=== PATIENT | female | born 1980 | race Hispanic/Latino ===

== ENCOUNTER 2017-07-20 18:42 | Emergency (ER) | payer OTHER, SELFPAY ==
[2017-07-20 19:28] LABS: Pregnancy Test - Urine (BHCG) Negative (Negative); Pregu Control Background? CLEAR/WHITE (CLR/WHITE); Pregu Control Bar Appear? YES (CONTROL BAR); Specific Gravity 1.024 (1.002-1.036)
[2017-07-20 19:30] LABS: Bilirubin Negative (Negative); Blood, Urine Moderate (Negative); Clarity CLOUDY (Clear); Glucose, Urine (Dipstick) Negative (Negative); Leukocyte Small (Negative); Nitrite Negative (Negative); Protein, Urine (Dipstick) Negative (Neg-Trace); Specific Gravity, Urine 1.024 (1.002-1.036); Urobilinogen 0.2 mg/dL (0.2-1.0); pH, Urine 5.5 (5.0-9.0)
[2017-07-20] MEDS ORDERED: Ketorolac Tromethamine 30 MG/ML VIAL ONE (19:32)
[2017-07-20] MEDS ORDERED: Morphine 4 MG/ML VIAL ONE (19:32)
[2017-07-20 19:34] LABS: Bacteria/HPF 2+ HPF (None Seen); Hyaline Casts/LPF 0-3 HYALINE CAST LPF (0-3 Hyaline); Pathc Cast-AUWi Flag 0.27 (0-2.49)
[2017-07-20 19:41] LABS: Yeast-AUWi Flag 108.9 (0-25.0)
[2017-07-20 19:49] LABS: Yeast-All Forms None Seen HPF (None Seen)
[2017-07-20] MEDS ORDERED: Nitrofurantoin Macrocrystal 50 MG CAP PO SCH (20:15)
== END 2017-07-20 20:21 | disposition home or self-care (01) ==
LOC: ERS 18:42
DX: M62.830 Muscle spasm of back (principal); N39.0 Urinary tract infection, site not specified
CPT/HCPCS: 81003; 81015; 81025; 87086; 96372; J1885; J2270

== ENCOUNTER 2017-11-05 15:47 | Emergency (ER) | payer SELFPAY ==
[2017-11-05 16:08] LABS: Bilirubin Negative (Negative); Blood, Urine Trace (Negative); Clarity Slightly Cloudy (Clear); Glucose, Urine (Dipstick) Negative (Negative); Leukocyte Trace (Negative); Nitrite Negative (Negative); Protein, Urine (Dipstick) Trace mg/dL (Neg-Trace); Urobilinogen 0.2 mg/dL (0.2-1.0)
[2017-11-05 16:09] LABS: Bacteria/HPF 2+ HPF (None Seen)
== END 2017-11-05 16:27 | disposition home or self-care (01) ==
LOC: SCSER 15:47
DX: O09.511 Supervision of elderly primigravida, first trimester (principal); O23.41 Unspecified infection of urinary tract in pregnancy, first trimester; Z79.899 Other long term (current) drug therapy; Z3A.08 8 weeks gestation of pregnancy
CPT/HCPCS: 81003; 81015; 87077; 87086; 87186; 99283

== ENCOUNTER 2017-11-16 11:54 | Emergency (ER) | payer MEDICAID, SELFPAY ==
[2017-11-16 12:27] LABS: #Basophils 0.1 thou/uL (0.0-0.2); #Eosinphils 0.2 thou/uL (0.0-0.7); #Lymphocytes 1.6 thou/uL (1.20-3.40); #Monocytes 0.5 thou/uL (0.11-0.59); #Neutrophils 3.7 thou/uL (1.40-6.50); %Basophils 1.7 % (0.0-1.0); %Lymphocytes 26.4 % (21.0-51.0); %Monocytes 7.5 % (0.0-10.0); %Neutrophils 61.4 % (42.0-75.0); Hemoglobin 13.3 g/dL (12.0-16.0); Mean Corpuscular HGB CONC 32.9 g/dL (32.0-36.0); Mean Corpuscular Hemoglobin 30.5 pg (27.0-31.0); Mean Corpuscular Volume 92.7 fL (78.0-98.0); Mean Platelet Volume 8.6 fL (7.4-10.4); Platelet Count 219 thou/uL (130-400); RBC Distribution Width 12.2 % (11.5-14.5); Red Blood Cell (RBC) Count 4.34 mill/uL (4.20-5.40)
[2017-11-16 12:42] LABS: Bilirubin Negative (Negative); Blood, Urine Negative (Negative); Clarity CLEAR (Clear); Glucose, Urine (Dipstick) Negative (Negative); Leukocyte Negative (Negative); Nitrite Negative (Negative); Protein, Urine (Dipstick) Negative (Neg-Trace); Specific Gravity, Urine 1.008 (1.002-1.036); Urobilinogen 0.2 mg/dL (0.2-1.0); pH, Urine 6.5 (5.0-9.0)
[2017-11-16 13:15] LABS: ALT (SGPT) 33 U/L (8-55); AST (SGOT) 23 U/L (5-34); Alkaline Phosphatase 60 U/L (40-150); Anion Gap 12 mmol/L (10-20); BUN (Urea Nitrogen) 10 mg/dL (7.0-18.7); Bilirubin, Total 0.5 mg/dL (0.2-1.2); Calc. Creatinine Clearance 0 mL/min (70-130); Carbon Dioxide 23 mmol/L (22-29); Chloride 105 mmol/L (98-107); Estimated GFR-MDRD Greater than 90; Glucose 120 mg/dL (70-105); Potassium 3.9 mmol/L (3.5-5.1); Sodium 136 mmol/L (136-145)
--- NOTE | 2017-11-16 13:55 | ULT ---
TRANSABDOMINAL AND TRANSVAGINAL PELVIC ULTRASOUND WITH DOPPLER: Date: 11/16/17 PROVIDED CLINICAL HISTORY: Vaginal bleeding. FINDINGS: Uterus measures about 8.1 x 5.4 x 5.8 cm and demonstrates a circumscribed endometrial fluid collectio n. There is no evidence for a yolk sac or pole. The right and left ovaries appear sonographically normal. Color Doppler and spectral analysis of the ovarian waveforms reveal flow bilaterally. There is no evidence for adnexal mass. Somewhat prominent appearance to the uterine fundus may reflect fibroid. No evidence for free pelvic fluid. IMPRESSION: Circumscribed endometrial fluid collection may represent pseudogestational sac or failed . C orrelation with serial follow-up beta HCG values recommended. POS: [facility]
[2017-11-17 22:42] LABS: Chlamydia by PCR Not Detected (NotDetected); GC by PCR Not Detected (NotDetected)
== END 2017-11-16 16:50 | disposition home or self-care (01) ==
LOC: ERS 11:54
DX: O03.9 Complete or unspecified spontaneous abortion without complication (principal)
CPT/HCPCS: 36415; 76856; 80053; 81003; 84702; 85025; 86900; 86901; 87480; 87491; 87510; 87591; 87660

== ENCOUNTER 2017-11-19 15:55 | Emergency (ER) | payer MEDICAID ==
[2017-11-19 16:36] LABS: #Basophils 0.1 thou/uL (0.0-0.2); #Eosinphils 0.2 thou/uL (0.0-0.7); #Lymphocytes 2.3 thou/uL (1.20-3.40); #Monocytes 0.4 thou/uL (0.11-0.59); #Neutrophils 4.5 thou/uL (1.40-6.50); %Basophils 1.1 % (0.0-1.0); %Eosinophils 2.7 % (0.0-10.0); %Lymphocytes 30.8 % (21.0-51.0); %Monocytes 5.3 % (0.0-10.0); %Neutrophils 60.1 % (42.0-75.0); Hemoglobin 12.6 g/dL (12.0-16.0); Mean Corpuscular HGB CONC 33.6 g/dL (32.0-36.0); Mean Corpuscular Hemoglobin 29.4 pg (27.0-31.0); Mean Corpuscular Volume 87.5 fL (78.0-98.0); Mean Platelet Volume 10.2 fL (7.4-10.4); Platelet Count 228 thou/uL (130-400); RBC Distribution Width 11.7 % (11.5-14.5); White Blood Cell (WBC) Count 7.4 thou/uL (4.8-10.8)
--- NOTE | 2017-11-19 17:45 | ULT ---
PELVIC ULTRASOUND: 11/19/17 COMPARISON: 11/16/17. HISTORY: Recently threatened miscarriage in a female. TECHNIQUE: Multiplanar hadley scale and color doppler images were obtained in a transabdominal and transvaginal pe lvic ultrasound. Spectral analysis of the doppler waveforms were performed. FINDINGS: There is a structure in the endometrium which appears to represent an empty gestational sac. No pole or yolk sac is seen within this likely gestational sac. Mean sac diameter is 1.22 cm which woul d estimate gestational age at 6 weeks, 1 day. This has not changed significantly since the previous e xamination. No free fluid is seen in the pelvis. Both ovaries are normal in size and appearance and demonstrate n ormal internal flow. IMPRESSION: There is the appearance of a gestational sac within the uterus which is empty. No change has occurred compared to the prior exam. This may represent a blighted ovum. Please correlate with HCG laboratory values and whether they are upward or downward trending. POS: [facility]
== END 2017-11-19 18:39 | disposition home or self-care (01) ==
LOC: SCSER 15:55
DX: O36.4XX0 Maternal care for intrauterine death, not applicable or unspecified (principal); O02.0 Blighted ovum and nonhydatidiform mole
CPT/HCPCS: 36415; 76856; 84702; 85025

== ENCOUNTER 2017-11-26 13:57 | Outpatient (CLI) | payer OTHER ==
--- NOTE | 2017-11-26 15:24 | ULT ---
PELVIC ULTRASOUND INCLUDING TRANSABDOMINAL AND TRANSVAGINAL AND VASCULAR DUPELX WITH COLOR AND SPECTR AL DOPPLER IMAGING: HISTORY: A 37-year-old female with a history of missed AB. COMPARISON: 11/19/17. FINDINGS: The uterus measures 9.5 x 5.5 x 6.9 cm and is markedly retroverted and retroflexed. Endometrium kris ures 0.5 cm. Right ovary 1.5 x 1.9 x 2.8 cm. Left ovary 1.9 x 1.9 x 3.0 cm. There is vascular flow documented to both ovaries. There is minimal free fluid in the cul-de-sac. T he previously noted gestational sac is no longer evident within the uterus, evidence for a complete A B. IMPRESSION: Previously noted gestational sac seen on the prior study is no longer evident. Evidence for a comple te . Markedly retroverted or retroflexed uterus. Unremarkable adnexa. Minimal cul-de-sac f luid. No evidence for an ectopic . Correlate with serum HCGs. POS: [facility]
== END 2017-11-26 13:58 | disposition home or self-care (01) ==
LOC: ULT 13:57
PROVIDERS: ATTEND Family Medicine
DX: O02.1 Missed abortion (principal)
CPT/HCPCS: 36415; 76856; 84702

== ENCOUNTER 2018-02-28 15:09 | Emergency (ER) | payer OTHER, SELFPAY ==
[2018-02-28 15:49] LABS: #Basophils 0.1 thou/uL (0.0-0.2); #Eosinphils 0.1 thou/uL (0.0-0.7); #Lymphocytes 2.2 thou/uL (1.20-3.40); #Monocytes 0.6 thou/uL (0.11-0.59); #Neutrophils 5.4 thou/uL (1.40-6.50); %Basophils 0.6 % (0.0-1.0); %Eosinophils 1.4 % (0.0-10.0); %Lymphocytes 25.9 % (21.0-51.0); %Monocytes 7.4 % (0.0-10.0); %Neutrophils 64.7 % (42.0-75.0); Hemoglobin 13.1 g/dL (12.0-16.0); Mean Corpuscular HGB CONC 32.9 g/dL (32.0-36.0); Mean Corpuscular Hemoglobin 30.4 pg (27.0-31.0); Mean Corpuscular Volume 92.3 fL (78.0-98.0); Mean Platelet Volume 8.6 fL (7.4-10.4); Platelet Count 239 thou/uL (130-400); RBC Distribution Width 12.5 % (11.5-14.5); Red Blood Cell (RBC) Count 4.32 mill/uL (4.20-5.40); White Blood Cell (WBC) Count 8.3 thou/uL (4.8-10.8)
[2018-02-28 15:58] LABS: BHCG - Serum POSITIVE (NEGATIVE); Pregs Control Background? CLEAR/WHITE (CLR/WHITE); Pregs Control Bar Appear? YES (CONTROL BAR)
[2018-02-28 16:12] LABS: ALT (SGPT) 18 U/L (8-55); AST (SGOT) 14 U/L (5-34); Alkaline Phosphatase 47 U/L (40-150); Anion Gap 11 mmol/L (10-20); BUN (Urea Nitrogen) 11 mg/dL (7.0-18.7); Bilirubin, Total 0.4 mg/dL (0.2-1.2); Calc. Creatinine Clearance 0 mL/min (70-130); Carbon Dioxide 25 mmol/L (22-29); Chloride 104 mmol/L (98-107); Estimated GFR-MDRD 81; Globulin 2.9 g/dL (2.4-3.5); Glucose 99 mg/dL (70-105); Potassium 4.3 mmol/L (3.5-5.1); Protein, Total 6.9 g/dL (6.0-8.3); Sodium 136 mmol/L (136-145)
[2018-02-28 16:36] LABS: Bilirubin Negative (Negative); Blood, Urine Large (Negative); Clarity CLOUDY (Clear); Glucose, Urine (Dipstick) Negative (Negative); Leukocyte Small (Negative); Nitrite Negative (Negative); Protein, Urine (Dipstick) Trace mg/dL (Neg-Trace); Specific Gravity, Urine 1.016 (1.002-1.036); Urobilinogen 0.2 mg/dL (0.2-1.0); pH, Urine 6.5 (5.0-9.0)
[2018-02-28 16:39] LABS: Bacteria/HPF None Seen HPF (None Seen); Hyaline Casts/LPF 0-3 HYALINE CAST LPF (0-3 Hyaline); Pathc Cast-AUWi Flag 0.14 (0-2.49); RBC/HPF GREATER THAN 50-TNTC HPF (0-3); Squamous Epithelial 0-3 HPF (0-3); WBC/HPF 0-3 HPF (0-3)
--- NOTE | 2018-02-28 19:07 | ULT ---
OBSTETRIC SONOGRAM: 02/28/18 HISTORY: First trimester . Vaginal bleeding. FINDINGS: Urinary bladder is decompressed. Gestational sac in the endometrial cavity contains a yolk sac and fe fam pole. Heart motion at 185 beats per minute. Measurements correlate with 8 weeks, 1 day gestationa l age giving an estimated date of delivery of 10/02/18. Good color and spectral doppler flow within each ovary. IMPRESSION: Single viable intrauterine gestation with estimated gestational age of 9 weeks, 1 day. POS: [facility]
== END 2018-02-28 20:07 | disposition home or self-care (01) ==
LOC: ERS 15:09
DX: O46.91 Antepartum hemorrhage, unspecified, first trimester (principal); Z3A.08 8 weeks gestation of pregnancy
CPT/HCPCS: 36415; 76856; 80053; 81003; 81015; 84702; 84703; 85025; 86900; 86901

== ENCOUNTER 2018-05-06 09:37 | Outpatient (CLI) | payer OTHER ==
--- NOTE | 2018-05-06 11:32 | ULT ---
OBSTETRICAL ULTRASOUND: 05/06/2018 HISTORY: A 37-year-old female. Evaluate anatomy. COMPARISON: None. TECHNIQUE: Multiplanar hadley-scale sonographic imaging of the gravid uterus obtained. FINDINGS: A single intrauterine gestation is present, demonstrating a cephalic presentation. face, nose, and lips could not be visualized secondary to head position. Placenta is located posteriorly with no evidence for previa or abruption. Amniotic fluid volume appears qualitatively normal. intracranial contents, spine, and umbilical cord insertion appear grossly unremarkable. Four-c hamber heart view is limited secondary to maternal body habitus. heart rate is 150 beats per m inute. The region of the kidneys and the urinary bladder appear grossly unremarkable. BIOMETRY: BPD: 4.4 cm (19 weeks 2 days). HC: 16.3 cm (19 weeks 1 day). AC: 14.1 cm (19 weeks 4 days). FL: 3.1 cm (19 weeks 5 days). Average age based on ultrasound is 19 weeks 3 days. Estimated weight is 293 g. Estimated date of delivery is 09/27/2018. IMPRESSION: Single intrauterine gestation, as detailed above. POS: [facility]
== END 2018-05-06 09:38 | disposition home or self-care (01) ==
LOC: BICULT 09:37
PROVIDERS: ATTEND Family Medicine
DX: O09.522 Supervision of elderly multigravida, second trimester (principal); Z3A.19 19 weeks gestation of pregnancy
CPT/HCPCS: 76805

== ENCOUNTER 2018-08-28 12:30 | Inpatient (IN) | payer OTHER ==
[2018-09-29] MEDS ORDERED: Acetaminophen/Codeine 30-300mg Tablet PO PRN (08:03)
[2018-09-29] MEDS ORDERED: HYDROcodone/Acetaminophen 5/325 mg Tablet PO PRN (08:03)
[2018-09-29] MEDS ORDERED: Lidocaine 1% (PF) 30 ML VIAL SC PRN (08:03)
[2018-09-29] MEDS ORDERED: Butorphanol Tartrate 1 MG/ML VIAL SLOW IVP PRN (08:03)
[2018-09-29] MEDS ORDERED: Promethazine HCl 25 MG/ML VIAL IM PRN ×2 (08:03→12:16)
[2018-09-29] MEDS ORDERED: Methylergonovine 0.2 MG/ML VIAL IM PRN (08:03)
[2018-09-29] MEDS ORDERED: Acetaminophen 500 MG TAB PO PRN (08:03)
[2018-09-29] MEDS ORDERED: Misoprostol 200 MCG TAB PR PRN (08:03)
[2018-09-29] MEDS ORDERED: NS w/ Oxytocin 10 units 500 ML IV SCH ×2 (08:03)
[2018-09-29] MEDS ORDERED: Ibuprofen 800 MG TAB PO PRN (08:03)
[2018-09-29] MEDS ORDERED: Ondansetron PF 4 MG/2 ML Vial IVP PRN ×3 (08:03→17:55)
[2018-09-29] MEDS ORDERED: Bupivacaine/Epinephrine 0.25% 30 ML VIAL ONE (09:00)
[2018-09-29] MEDS: Lactated Ringer's 500 ML IV PRN ×3 (09:00→16:00)
[2018-09-29 09:01] LABS: Hemoglobin 11.9 g/dL (12.0-16.0); Mean Corpuscular HGB CONC 33.9 g/dL (32.0-36.0); Mean Corpuscular Hemoglobin 30.3 pg (27.0-31.0); Mean Corpuscular Volume 89.5 fL (78.0-98.0); Mean Platelet Volume 10.6 fL (7.4-10.4); Platelet Count 187 thou/uL (130-400); RBC Distribution Width 13.2 % (11.5-14.5); Red Blood Cell (RBC) Count 3.94 mill/uL (4.20-5.40); White Blood Cell (WBC) Count 9.1 thou/uL (4.8-10.8)
[2018-09-29 09:35] LABS: HBSAg Index 0.32 S/CO (0-0.99); Hep B Surf Ag Non-Reactive S/CO (NonReactive)
[2018-09-29 09:36] LABS: Syphilis Antibody Nonreactive (Nonreactive); Syphilis Antibody Index 0.06 S/CO (<1.00 Non-Reactive)
[2018-09-29 10:46] VITALS: BMI 36.9
[2018-09-29] MEDS ORDERED: Fentanyl 4 mcg/Bup 0.1% Cadd 100 ML ONE (11:35)
[2018-09-29] MEDS ORDERED: diphenhydrAMINE 50 MG/ML VIAL IVP PRN (12:16)
[2018-09-29] MEDS ORDERED: Acetaminophen 325 MG TAB PO PRN (12:16)
[2018-09-29] MEDS ORDERED: Naloxone HCl 0.4 mg/ml Vial IVP PRN ×2 (12:16)
[2018-09-29] MEDS ORDERED: ePHEDrine/0.9% NaCl/PF SYRINGE 50 mg/10 ml SLOW IVP PRN (12:16)
[2018-09-29] MEDS ORDERED: Communication Order-Pharmacy FS SCH (12:30)
[2018-09-29] MEDS ORDERED: Fentanyl 4 mcg/Bupivacaine 0.1% Cassette 100 ML EPIDURAL SCH (12:30)
[2018-09-29] MEDS ORDERED: Oxytocin 10 UNITS/ML VIAL ONE (15:52)
[2018-09-29] MEDS: NS / Oxytocin 40 units/1000ml 1,000 ML IV PRN ×2 (17:21→17:57)
[2018-09-29] MEDS ORDERED: diphenhydrAMINE 25 MG CAP PO PRN (17:55)
[2018-09-29] MEDS ORDERED: Milk Of Magnesia 30 ML UDCUP PO PRN (17:55)
[2018-09-29] MEDS ORDERED: Preparation H Ointment 28 GM TUBE PR PRN (17:55)
[2018-09-29] MEDS ORDERED: Benzocaine-Menthol 82.5 ML CAN TOP PRN (17:55)
[2018-09-29] MEDS ORDERED: Bisacodyl 10 MG SUPP PR PRN (17:55)
[2018-09-29] MEDS ORDERED: Lanolin Ointment 7 GM TUBE TOP PRN (17:55)
[2018-09-29] MEDS ORDERED: traMADol HCl 50 MG TAB PO PRN (17:55)
[2018-09-29] MEDS ORDERED: NS / Oxytocin 40 units/1000ml 1,000 ML IV SCH (18:15)
[2018-09-29] MEDS ORDERED: Ferrous Sulfate 325 MG TAB PO SCH (18:15)
[2018-09-29] MEDS: Ibuprofen 800 MG TAB PO SCH (20:02)
[2018-09-29] MEDS: Docusate Calcium (SURFAK) 240 MG CAP PO SCH (21:45)
[2018-09-29] MEDS: HYDROcodone/Acetaminophen 5/325 mg Tablet PO PRN (21:51)
[2018-09-30] MEDS: Ibuprofen 800 MG TAB PO SCH ×3 (05:21→22:16)
[2018-09-30] MEDS: Acetaminophen/Codeine 30-300mg Tablet PO PRN ×3 (05:33→22:15)
[2018-09-30] MEDS: Docusate Calcium (SURFAK) 240 MG CAP PO SCH ×2 (09:27→22:16)
[2018-09-30] MEDS: Ferrous Sulfate 325 MG TAB PO SCH ×2 (09:27→17:18)
[2018-09-30] MEDS: Prenatal Vitamin 1 TAB PO SCH (09:28)
[2018-09-30] MEDS: HYDROcodone/Acetaminophen 5/325 mg Tablet PO PRN (09:34)
[2018-10-01] MEDS: Acetaminophen/Codeine 30-300mg Tablet PO PRN ×2 (03:22→09:08)
[2018-10-01] MEDS: Ibuprofen 800 MG TAB PO SCH (05:22)
[2018-10-01 08:10] VITALS: BP 127/85; TEMP 98.2
[2018-10-01] MEDS: Docusate Calcium (SURFAK) 240 MG CAP PO SCH (09:03)
[2018-10-01] MEDS: Prenatal Vitamin 1 TAB PO SCH (09:03)
[2018-10-01] MEDS: Ferrous Sulfate 325 MG TAB PO SCH (09:03)
== END 2018-10-01 11:30 | disposition home or self-care (01) | DRG 807 ==
LOC: EDSTATUS 14:37 → L&D 09-29 07:57 → 3SE 09-29 20:31
PROVIDERS: ADMIT Family Medicine; ATTEND Family Medicine
PROC: 10E0XZZ Delivery of Products of Conception, External Approach (ICD-10-PCS; principal; 2018-09-29)
PROC: 10907ZC Drainage of Amniotic Fluid, Therapeutic from Products of Conception, Via Natural or Artificial Opening (ICD-10-PCS; 2018-09-29)
PROC: 3E0P7VZ Introduction of Hormone into Female Reproductive, Via Natural or Artificial Opening (ICD-10-PCS; 2018-09-29)
PROC: 3E033VJ Introduction of Other Hormone into Peripheral Vein, Percutaneous Approach (ICD-10-PCS; 2018-09-29)
DX: O69.81X0 Labor and delivery complicated by cord around neck, without compression, not applicable or unspecified (principal); Z37.0 Single live birth; Z3A.39 39 weeks gestation of pregnancy; Z88.0 Allergy status to penicillin; Z88.6 Allergy status to analgesic agent
CPT/HCPCS: 36415; 51702; 85027; 86780; 86850; 86900; 86901; 87340; J2590